=== PATIENT | male | born 1965 | race Caucasian/White ===

== ENCOUNTER 2020-11-29 01:32 | Emergency (ER) | payer BC ==
[~2020-11-29] VITALS: Ht 175.3 cm; Wt 76.2 kg
[2020-11-29 01:37] VITALS: BP_SYST 130
[2020-11-29] MEDS ORDERED: LIDOCAINE MPF 2% 5mL VIAL INJ ONE (03:15)
[2020-11-29] MEDS ORDERED: ceFAZolin SODIUM 1 GM VIAL IM ONE (03:15)
[2020-11-29] MEDS ORDERED: LIDOCAINE 2%, 20 ML MDV ONE (03:30)
[2020-11-29] MEDS ORDERED: BACITRACIN 1 GM OINT TP ONE ×2 (04:00→04:22)
[2020-11-29] MEDS ORDERED: HYDR-3917 PO (04:18)
[2020-11-29] MEDS ORDERED: CEPH250C PO (04:18)
[2020-11-29 04:46] VITALS: BP_SYST 125
== END 2020-11-29 04:46 | disposition home or self-care (01) ==
LOC: SED 01:32
DX: S91.111A Laceration without foreign body of right great toe without damage to nail, initial encounter (principal); W45.8XXA Other foreign body or object entering through skin, initial encounter; Y93.89 Activity, other specified; Y92.89 Other specified places as the place of occurrence of the external cause; Y99.8 Other external cause status
CPT/HCPCS: 12002; 96372; 99283; J0690; J2001